=== PATIENT | female | born 1995 | race African-American/Black ===

== ENCOUNTER 2018-04-11 19:05 | Emergency (ER) | payer OTHER ==
[2018-04-11 19:24] VITALS: RESP 18
[2018-04-11] MEDS ORDERED: SODIUM CHLORIDE 0.9% 1,000 ML IV STA (20:08)
[2018-04-11 20:38] LABS: Basophils % (A) 1 %; Eosinophils # (A) 0.2 k/uL (0-0.7); Eosinophils % (A) 3 %; HCT 41.4 % (34.0-46.0); HGB 13.7 gm/dL (11.4-16.0); Lymphocytes # (A) 2.2 k/uL (1.0-4.8); Lymphocytes % (A) 41 %; MCH 31.6 pg (25.0-35.0); MCHC 33.2 g/dL (31.0-37.0); MCV 95.2 fL (80.0-100.0); Mean Platelet Volume 6.8; Monocytes # (A) 0.3 k/uL (0-1.0); Monocytes % (A) 6 %; Neutrophils # (A) 2.6 k/uL (1.3-7.7); Neutrophils % (A) 48 %; Platelet Count 264 k/uL (150-450); RBC 4.35 m/uL (3.80-5.40); RDW 12.5 % (11.5-15.5); WBC 5.5 k/uL (3.8-10.6)
[2018-04-11 20:42] LABS: Appearance,Urine Clear (Clear); Bilirubin,Urine Negative (Negative); Blood,Urine Negative (Negative); Color,Urine Light Yellow; Glucose,Urine (UA) Negative (Negative); Ketones,Urine Negative (Negative); Leukocyte Esterase,Urine Negative (Negative); Nitrite,Urine Negative (Negative); Protein,Urine Negative (Negative); Specific Gravity,Urine 1.017 (1.001-1.035); Urobilinogen,Urine <2.0 mg/dL (<2.0)
--- NOTE | 2018-04-11 20:48 | ED ---
General Adult HPI - General Chief complaint: Urogenital Stated complaint: Stomach pain Time Seen by Provider: 04/11/18 19:36 Source: patient, RN notes reviewed Mode of arrival: ambulatory Limitations: no limitations - History of Present Illness Initial comments: 22-year-old female presents to the emergency department for a chief complaint of vaginal discharge times one week. Patient is concerned for sexually transmitted diseases. Patient states her sexual partner had a new sexual partner. She states it does have a foul smell but does not smell fishy. She states she does have a history of bacterial vaginosis once but states this is not feel the same. She states the discharge is consistent with her normal discharge has increased in quantity. Denies any cottage cheese discharge. Patient also admits to lower abdominal pain times one week. She denies fevers or chills. Patient states she is also concerned for . She states she stopped her control last month. She denies missing any periods as of yet. Patient states she would like a blood test for . Patient has no other complaints at this time including shortness of breath, chest pain, nausea or vomiting, headache, or visual changes. - Related Data Previous Rx's Medication Instructions Recorded RX: Doxycycline [Vibramycin] 100 mg PO BID 14 Days capsule 04/11/18 Allergies Allergy/AdvReac Type Severity Reaction Status Date / Time No Known Allergies Allergy Verified 04/11/18 19:54 Review of Systems ROS Statement: Those systems with pertinent positive or pertinent negative responses have been documented in the HPI. ROS Other: All systems not noted in ROS Statement are negative. Past Medical History Past Medical History: No Reported History History of Any Multi-Drug Resistant Organisms: None Reported Past Surgical History: Section Past Psychological History: No Psychological Hx Reported Smoking Status: Current every day smoker Past Alcohol Use History: Occasional Past Drug Use History: None Reported General Exam Limitations: no limitations General appearance: alert, in no apparent distress Head exam: Present: atraumatic, normocephalic, normal inspection Eye exam: Present: normal appearance, PERRL, EOMI. Absent: scleral icterus, conjunctival injection, periorbital swelling ENT exam: Present: normal exam, mucous membranes moist Neck exam: Present: normal inspection, full ROM. Absent: tenderness, meningismus, lymphadenopathy Respiratory exam: Present: normal lung sounds bilaterally. Absent: respiratory distress, wheezes, rales, rhonchi, stridor Cardiovascular Exam: Present: regular rate, normal rhythm, normal heart sounds. Absent: systolic murmur, diastolic murmur, rubs, gallop, clicks GI/Abdominal exam: Present: soft, tenderness (Tenderness in the suprapubic area. Mild epigastric tenderness. Negative right upper quadrant tenderness. Negative Carrillo sign. No right or left lower quadrant tenderness.), normal bowel sounds. Absent: distended, guarding, rebound, rigid Speculum exam: Present: cervical discharge. Absent: vaginal bleeding, foreign body, laceration By manual exam: Present: uterine tenderness. Absent: cervical motion tenderness , adnexal tenderness, adnexal mass, uterine enlargement Neurological exam: Present: alert, oriented X3, CN II-XII intact Psychiatric exam: Present: normal affect, normal mood Course Vital Signs 04/11/18 19:21 Temperature 98.2 F Pulse Rate 66 Respiratory 18 Rate Blood Pressure 137/91 O2 Sat by Pulse 100 Oximetry Medical Decision Making - Medical Decision Making 22-year-old female presents to the emergency department for a chief complaint of increased vaginal discharge times one week. Patient is concerned for STDs and states her partner did have a new sexual partner. Patient admits to lower abdominal pain as well as epigastric pain times one week. Currently rates her pain at a 5 out of 10. Refuses pain meds. She denies fevers or chills. She denies "cottage cheese" discharge or fishy smelling discharge. On exam patient does have mild suprapubic and epigastric tenderness. Pelvic exam did reveal mild cervical discharge without significant odor. Patient does have mild suprapubic tenderness, no adnexal tenderness. Urine negative for evidence of infection. Urine hCG negative. Patient did request serum Quant hCG which was negative as well. I did recommend x-ray as patient has epigastric tenderness to rule out ulcer perforation the patient refuses this multiple times. She does understand the risks and states she will return if she has worsening upper abdominal symptoms. No right upper quadrant pain, negative Carrillo sign. Ultrasound shows a normal uterus and endometrium. Small ovarian cyst. No evidence of torsion. Patient was tested for Trichomonas and gonorrhea and chlamydia. Trichomonas is negative. Gonorrhea and chlamydia pending at this time. Patient agrees to empiric treatment. As she is having lower abdominal pain patient will be given 14 days of doxycycline and IM Rocephin to cover for any possible PID. She was educated to monitor her portal to see if results are positive. If results are negative she can stop the antibiotic at that time. She is aware of this. She will follow up with primary care in 1-2 days. She will return here if she has any worsening symptoms. - Lab Data Result diagrams: 04/11/18 20:21 04/11/18 20:21 Lab Results 04/11/18 04/11/18 04/11/18 Range/Units 20:21 20:21 20:21 WBC 5.5 (3.8-10.6) k/uL RBC 4.35 (3.80-5.40) m/uL Hgb 13.7 (11.4-16.0) gm/dL Hct 41.4 (34.0-46.0) % MCV 95.2 (80.0-100.0) fL MCH 31.6 (25.0-35.0) pg MCHC 33.2 (31.0-37.0) g/dL RDW 12.5 (11.5-15.5) % Plt Count 264 (150-450) k/uL Neutrophils % 48 % Lymphocytes % 41 % Monocytes % 6 % Eosinophils % 3 % Basophils % 1 % Neutrophils # 2.6 (1.3-7.7) k/uL Lymphocytes # 2.2 (1.0-4.8) k/uL Monocytes # 0.3 (0-1.0) k/uL Eosinophils # 0.2 (0-0.7) k/uL Basophils # 0.0 (0-0.2) k/uL Sodium 139 (137-145) mmol/L Potassium 4.5 (3.5-5.1) mmol/L Chloride 104 (98-107) mmol/L Carbon Dioxide 26 (22-30) mmol/L Anion Gap 9 mmol/L BUN 10 (7-17) mg/dL Creatinine 0.51 L (0.52-1.04) mg/dL Est GFR (CKD-EPI)AfAm >90 (>60 ml/min/1.73 sqM) Est GFR (CKD-EPI)NonAf >90 (>60 ml/min/1.73 sqM) Glucose 75 (74-99) mg/dL Calcium 9.6 (8.4-10.2) mg/dL Total Bilirubin 0.4 (0.2-1.3) mg/dL AST 18 (14-36) U/L ALT 21 (9-52) U/L Alkaline Phosphatase 73 (38-126) U/L Total Protein 8.0 (6.3-8.2) g/dL Albumin 4.4 (3.5-5.0) g/dL Amylase 51 (30-110) U/L Lipase 106 (23-300) U/L HCG, Quant <2.4 mIU/mL Urine Color Light Yellow Urine Appearance Clear (Clear) Urine pH 7.0 (5.0-8.0) Ur Specific Edgard 1.017 (1.001-1.035) Urine Protein Negative (Negative) Urine Glucose (UA) Negative (Negative) Urine Ketones Negative (Negative) Urine Blood Negative (Negative) Urine Nitrite Negative (Negative) Urine Bilirubin Negative (Negative) Urine Urobilinogen <2.0 (<2.0) mg/dL Ur Leukocyte Esterase Negative (Negative) Urine HCG, Qual (Not Detectd) Trichomonas Ag (Rapid) (Negative) 04/11/18 04/11/18 Range/Units 20:21 20:21 WBC (3.8-10.6) k/uL RBC (3.80-5.40) m/uL Hgb (11.4-16.0) gm/dL Hct (34.0-46.0) % MCV (80.0-100.0) fL MCH (25.0-35.0) pg MCHC (31.0-37.0) g/dL RDW (11.5-15.5) % Plt Count (150-450) k/uL Neutrophils % % Lymphocytes % % Monocytes % % Eosinophils % % Basophils % % Neutrophils # (1.3-7.7) k/uL Lymphocytes # (1.0-4.8) k/uL Monocytes # (0-1.0) k/uL Eosinophils # (0-0.7) k/uL Basophils # (0-0.2) k/uL Sodium (137-145) mmol/L Potassium (3.5-5.1) mmol/L Chloride (98-107) mmol/L Carbon Dioxide (22-30) mmol/L Anion Gap mmol/L BUN (7-17) mg/dL Creatinine (0.52-1.04) mg/dL Est GFR (CKD-EPI)AfAm (>60 ml/min/1.73 sqM) Est GFR (CKD-EPI)NonAf (>60 ml/min/1.73 sqM) Glucose (74-99) mg/dL Calcium (8.4-10.2) mg/dL Total Bilirubin (0.2-1.3) mg/dL AST (14-36) U/L ALT (9-52) U/L Alkaline Phosphatase (38-126) U/L Total Protein (6.3-8.2) g/dL Albumin (3.5-5.0) g/dL Amylase (30-110) U/L Lipase (23-300) U/L HCG, Quant mIU/mL Urine Color Urine Appearance (Clear) Urine pH (5.0-8.0) Ur Specific Edgard (1.001-1.035) Urine Protein (Negative) Urine Glucose (UA) (Negative) Urine Ketones (Negative) Urine Blood (Negative) Urine Nitrite (Negative) Urine Bilirubin (Negative) Urine Urobilinogen (<2.0) mg/dL Ur Leukocyte Esterase (Negative) Urine HCG, Qual Not Detected (Not Detectd) Trichomonas Ag (Rapid) Negative (Negative) Disposition Clinical Impression: Vaginal discharge Disposition: HOME SELF-CARE Condition: Good Instructions: Vaginal Discharge (ED) Additional Instructions: Please take antibiotic as directed. Do not department while taking antibiotic. Please follow-up with primary care provider in one to 2 days. If symptoms worsen return to the emergency department. Prescriptions: RX: Doxycycline [Vibramycin] 100 mg PO BID 14 Days capsule Is patient prescribed a controlled substance at d/c from ED?: No Referrals: James Wesley MD [REFERRING] - 1-2 days Time of Disposition: 22:57
[2018-04-11 20:49] LABS: ALT 21 U/L (9-52); AST 18 U/L (14-36); Albumin 4.4 g/dL (3.5-5.0); Alkaline Phosphatase 73 U/L (38-126); Amylase 51 U/L (30-110); Anion Gap 9 mmol/L; Blood Urea Nitrogen 10 mg/dL (7-17); Calcium 9.6 mg/dL (8.4-10.2); Carbon Dioxide 26 mmol/L (22-30); Chloride 104 mmol/L (98-107); Glucose 75 mg/dL (74-99); Lipase 106 U/L (23-300); Potassium 4.5 mmol/L (3.5-5.1); Sodium 139 mmol/L (137-145); Total Bilirubin 0.4 mg/dL (0.2-1.3)
[2018-04-11 21:05] LABS: HCG,Quantitative Serum <2.4 mIU/mL
[2018-04-11] MEDS ORDERED: cefTRIAXone 250 MG VIAL IM STA (21:42)
[2018-04-11] MEDS ORDERED: DOXYCYCLINE 100 MG CAP PO STA (21:45)
--- NOTE | 2018-04-11 22:47 | US ---
EXAMINATION TYPE: US pelvic comp with doppler DATE OF EXAM: 04/11/2018 COMPARISON: NONE CLINICAL HISTORY: Pain. TECHNIQUE: Transabdominal (TA). Transabdominal sonographic images of the pelvis were acquired. Date of LMP: 03/25/2018 EXAM MEASUREMENTS: Uterus: 9.2 x 3.8 x 5.4 cm Endometrial Stripe: 0.5 cm Right Ovary: 3.3 x 2.1 x 2.7 cm Left Ovary: 2.9 x 2.2 x 2.7 cm 1. Uterus: Anteverted 2. Endometrium: not well delilneated, best measurement transverse. 3. Right Ovary: 1.7 x 1.5 x 1.3 cm cyst 4. Left Ovary: 1.7 x 1.5 x 1.6 cm cyst Spectral, color and waveform doppler imaging shows good arterial and venous flow within the ovaries ; there is no evidence for ovarian torsion. 5. Bilateral Adnexa: wnl 6. Posterior cul-de-sac: no free fluid IMPRESSION: Normal uterus and endometrium. Small ovarian cysts. No evidence of ovarian torsion.
[2018-04-11 23:02] VITALS: PULSE 96; TEMP 97.6
[2018-04-11 23:09] VITALS: BP 138/98
[2018-04-13 12:08] LABS: N. gonorrhoeae,PCR Negative (Neg,Equiv); Neisseria Source Vagina
[2018-04-13 12:11] LABS: C. trachomatis,PCR Negative (Neg,Equiv); Chlamydia trachomatis Source Vagina
== END 2018-04-11 23:08 | disposition home or self-care (01) ==
LOC: EC 19:05
DX: N89.8 Other specified noninflammatory disorders of vagina (principal); F17.200 Nicotine dependence, unspecified, uncomplicated
CPT/HCPCS: 36415; 80053; 82150; 83690; 85025; 81003; 81025; 84702; 87808; 87491; 87591; 93975; 76856; 99284; 96372; J0696; 93976